=== PATIENT | male | born 1985 | race Caucasian/White ===

== ENCOUNTER → 2017-01-16 | Outpatient (CLI) | payer OTHER ==
[~2017-01-16] MED LIST: MEDROL 4MG. DOSE4 MG PO; PROVENTIL0.09 MG/A1 IH
--- NOTE | 2017-01-16 20:13 | RADIOLOGY REPORT PS360 ---
KNEE-3 VIEWS-RT HISTORY: RT KNEE PAIN Patient Age: 31 years: Male Ordering Physician: Scott Jaimes MD TECHNIQUE: 3 views right knee COMPARISON :08/07/2009 FINDINGS Previous ACL repair. Oblique tunnel tract from such is seen to the distal femur and continuing into the proximal tibia . A screw entering laterally at the distal femur just above this tunnel secures the graft. Mild degenerative changes right knee. Early marginal osteophytes at the margins of the medial and lateral compartment as well as inferior patella have progressed since 2009 There is a small joint effusion suprapatella bursa . suspect subtle undulation at the medial femoral condyle which likely reflects underlying osteochondral irregularities at the condyle articular surface.. This is suggested on today's lateral as well as frontal projection. This would require MR to more optimally visualized. IMPRESSION:------ Previous ACL repair Evident Minimal joint effusion suprapatella bursa. Mild degenerative changes Question mild chondral irregularity at articular surface of medial femoral condyle
== END ==
LOC: RAD 10:32
DX: M25.561 Pain in right knee (principal)